=== PATIENT | male | born 1955 | race Caucasian/White ===

== ENCOUNTER 2018-04-17 06:28 | Emergency (ER) | payer OTHER, SELFPAY ==
[2018-04-17] VITALS (9 sets, daily range): BP systolic 81–152; BP diastolic 67–89; PULSE 48–82; RESP 14–17; TEMP 36.2; O2SAT 95–100; BMI 22.8
--- NOTE | 2018-04-17 06:34 | DI.RAD.S_ITS ---
PROCEDURE: XR CHEST 1V INDICATIONS: syncope TECHNIQUE: One view of the chest was acquired. COMPARISON: [facility], , CHEST 1 VIEW, 03/10/2016, 16:54. FINDINGS: Surgical changes and devices: None. Lungs and pleura: No pleural effusions or pneumothorax. Lungs are clear. Mediastinum: Mediastinal contours appear normal. Heart size is normal. Bones and chest wall: No suspicious bony lesions. Overlying soft tissues appear unremarkable. IMPRESSION: No acute cardiopulmonary disease process. Dictated by: Jade Mancuso MD, PhD on 04/17/2018 at 9:06 Approved by: Jade Mancuso MD, PhD on 04/17/2018 at 9:07
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
[2018-04-17 06:46] LABS: Add Manual Diff / Slide Review NO; Alanine Aminotransferase 26 IU/L (21-72); Albumin 4.5 g/dL (3.5-5.0); Albumin Globulin Ratio 1.5 (1.0-2.8); Alkaline Phosphatase 72 U/L (38-126); Aspartate Aminotransferase 32 IU/L (17-59); Basophils Percent Auto 0.9 % (0-2); Bilirubin Total 0.6 mg/dL (0.2-1.3); Blood Urea Nitrogen 16 mg/dL (9-20); Calcium 9.7 mg/dL (8.4-10.2); Carbon Dioxide 30 mmol/L (22-32); Chloride 103 mmol/L (98-107); Creatine Kinase 150 U/L (55-170); Eosinophils Percent Auto 2.6 % (2-4); Estimated Glomerular Filt Rate > 60.0 mL/min (>60); Glucose 79 mg/dL (80-110); HEMOLYSIS < 15 (0-50); Hematocrit 42.2 % (41-53); Hemoglobin 14.4 g/dL (13.5-17.5); Mean Corpuscular HGB Conc 34.2 % (30-36); Mean Corpuscular Hemoglobin 28.1 PG (26-34); Mean Corpuscular Volume 82.2 fL (80-100); Monocytes Percent Auto 9.5 % (3-14); Neutrophils Absolute Auto 5100 /uL (3000-5900); Platelet Count 267 X10^3/uL (150-400); Potassium 4.2 mmol/L (3.4-5.1); Red Blood Cell Count 5.13 X10^6/uL (4.5-5.9); Red Cell Distribution Width 14.7 % (11.6-14.8); Sodium 142 mmol/L (137-145); Total Protein 7.5 g/dL (6.3-8.2); White Blood Cell Count 7.4 X10^3/uL (4.5-11.0)
--- NOTE | 2018-04-17 06:54 | DI.CT.S_ITS ---
PROCEDURE: CT HEAD/BRAIN WO CON INDICATIONS: syncope, head injury, on aspirin TECHNIQUE: Noncontrast 4.5 mm thick angled axial sections acquired from the foramen magnum to the vertex, with coronal and sagittal reformats. For radiation dose reduction, the following was used: automated exposure control, adjustment of mA and/or kV according to patient size. COMPARISON: [facility], CT, HEAD AND NECK ANGIO, 03/10/2016, 18:22. [facility], CT, HEAD WITHOUT CONTRAST, 03/10/2016, 16:23. [facility], MR, STROKE PROTOCOL, 03/11/2016, 9:15. FINDINGS: Image quality: Excellent. CSF spaces: Basal cisterns are patent. There is prominent CSF attenuation in the left posterior fossa. No extra-axial fluid collections. The ventricles are symmetric in size and shape. Brain: There is a small subdural hematoma in the left inferior hemisphere along the tentorium as seen on the coronal image (series 4 image 26). There is small arachnoid hemorrhage in the contralateral right temporal lobe (series 4 image 41). The left cerebellar hemisphere is atrophic likely secondary to old infarct. No intracranial bleeds or masses. There is mild cerebral volume loss for age, with resultant ventricular and sulcal prominence. There are mild periventricular and deep white matter chronic small vessel ischemic changes. There is intracranial internal carotid artery atherosclerosis. Skull and face: Calvarium and visualized facial bones appear intact, without suspicious lesions. There is scalp laceration and contusion in the left parietal region. Sinuses: Visualized sinuses and mastoids are clear. IMPRESSION: 1.Small subdural hematoma along the left tentorium. There is small countercoup subarachnoid hemorrhage in the right temporal lobe. 2. Old left cerebellar infarct with encephalomalacia resulting in dilated CSF space in the left posterior fossa. 3. Mild cerebral volume loss and chronic microvascular ischemic changes. 4. Left parietal scalp laceration and contusion. No significant discrepancy with the shift engineer radiology preliminary report. Dictated by: Heraclio Skaggs M.D. on 04/17/2018 at 7:30 Transcribed by: NAZ on 04/17/2018 at 7:37 Approved by: Heraclio Skaggs M.D. on 04/17/2018 at 9:00
[2018-04-17 06:59] LABS: Troponin I < 0.012 ng/mL (0.01-0.034)
[2018-04-17] MEDS: SODIUM CHLORIDE 0.9% 1,000 ML 150 ML IV (07:00)
[2018-04-17 07:02] LABS: CKMB % Relative Index 1.4 % (1.5-5.0); Creatine Kinase MB 2.07 ng/mL (<2.37)
[2018-04-17] MEDS: ONDANSETRON 4 MG/2 ML INJ IV (07:27)
--- NOTE | 2018-04-17 07:39 | DI.CT.S_ITS ---
PROCEDURE: CT CERVICAL SPINE WO CON INDICATIONS: neck pain s/p fall TECHNIQUE: Noncontrast 3 mm thick sections acquired from the skull base to the T4 level. Sagittal and coronal reformats were then constructed. For radiation dose reduction, the following was used: automated exposure control, adjustment of mA and/or kV according to patient size. COMPARISON: [facility], CT, CT HEAD/BRAIN WO CON, 04/17/2018, 6:50. FINDINGS: Image quality: Excellent. Bones: No fractures or dislocations. Visualized superior ribs are intact. Spine degenerative disc disease and facet arthropathy. Soft tissues: Prevertebral soft tissues are normal in thickness. No paravertebral hematomas. No apical pneumothoraces. Large, partially calcified lymph nodes noted in the visualized mediastinum. Recommend dedicated CT scan of the chest for definitive characterization when clinically feasible. 6 mm subpleural nodule noted in the anterior apex of the right lung (series 2, image 55). IMPRESSION: 1. No fracture. No acute osseous lesion. If symptoms and/or clinical suspicion for pathology persists, evaluation with MRI may be helpful for further assessment. 2. Large, partially calcified lymph nodes in the visualized mediastinum. Recommend dedicated CT scan of the chest when clinically feasible. 3. 6 mm subpleural, solid nodule in the right upper lobe. Recommend followup imaging based on criteria outlined below. Fleischner Society criteria for SOLID lung nodule followup. Nodule size (mm)Low-risk patientHigh-risk patient<6 (single or multiple)No routine followup.Optional CT at 12 months. 6-8 (single or multiple)CT at 6-12 months, then optional CT at 18-24 mo.CT at 6-12 months, then CT at 18-24 months. >8 (single)CT at 3 months, PET-CT, or biopsy. Same as for low-risk pts. >8 (multiple)CT at 3-6 months, then optional CT at 18-24 mo.CT at 3-6 months, then CT at 18-24 months. Recommendations do not apply to lung cancer screening, patients with immunosuppression, or patients with known primary cancer. Dictated by: Jade Mancuso MD, PhD on 04/17/2018 at 7:51 Approved by: Jade Mancuso MD, PhD on 04/17/2018 at 8:00
== END 2018-04-17 10:39 | disposition short-term general hospital (02) ==
PROVIDERS: Emergency Provider Emergency Medicine; PCP Family Medicine
DX: S06.6X1A Traumatic subarachnoid hemorrhage with loss of consciousness of 30 minutes or less, initial encounter (principal); S06.5X9A Traumatic subdural hemorrhage with loss of consciousness of unspecified duration, initial encounter; W18.30XA Fall on same level, unspecified, initial encounter
CPT/HCPCS: 12002; 36591; 70450; 71045; 72125; 80053; 82550; 82553; 82962; 84484; 85025; 93005; 93010; 96361; 96374; 99285; 99291; J2405